=== PATIENT | female | born 1980 | race Caucasian/White ===

== ENCOUNTER 2017-08-19 18:33 | Emergency (ER) | payer OTHER ==
[~2017-08-19] VITALS: Ht 167.6 cm; Wt 54.4 kg
[2017-08-19 19:07] LABS: URINE BILIRUBIN NEGATIVE (Negative); URINE BLOOD NEGATIVE (Negative); URINE CLARITY CLEAR; URINE COLOR YELLOW; URINE GLUCOSE-RANDOM* NEGATIVE (Negative); URINE KETONES NEGATIVE (Negative); URINE LEUKOCYTES NEGATIVE (Negative); URINE NITRITE NEGATIVE (Negative); URINE PROTEIN (DIPSTICK) NEGATIVE (Negative); URINE SPECIFIC GRAVITY <= 1.005 (1.005-1.035); URINE UROBILINOGEN 0.2 E.U./dl (0.2-1.0)
[2017-08-19] MEDS ORDERED: MOBIC7.5 MG PO (20:30)
[2017-08-19 20:37] VITALS: BP 115/76
== END 2017-08-19 20:37 | disposition home or self-care (01) ==
LOC: ER 18:33
PROVIDERS: Nurse Practitioner Family
DX: M54.5 Low back pain (principal); F41.9 Anxiety disorder, unspecified

== ENCOUNTER 2019-01-22 03:02 | Emergency (ER) | payer OTHER ==
[~2019-01-22] VITALS: Ht 167.6 cm; Wt 54.4 kg
[~2019-01-22 03:02] MED LIST: MOBIC7.5 MG PO
[2019-01-22] MEDS ORDERED: FLONASE 0.05%50 MCG NASAL (03:12)
[2019-01-22] MEDS ORDERED: AZELASTINE137 MCG/0. NASAL (03:13)
[2019-01-22] MEDS ORDERED: MIRENA1 EACH INTRAUTERI (03:14)
[2019-01-22 03:43] LABS: ABSOLUTE NEUTROPHILS 1.9 thou/uL (1.4-8.2); BASOPHILS 0.9 % (0.0-2.0); EOSINOPHILS 1.9 % (0.0-3.0); HEMATOCRIT 40.8 % (37.0-47.0); HEMOGLOBIN 13.8 gm/dL (12.0-15.0); LYMPHOCYTES 48.1 % (24.0-44.0); MCH 28.6 pg (26.0-34.0); MCHC 33.8 g/dL (28.0-37.0); MCV 84.6 fL (80.0-100.0); MONOCYTES 7.6 % (1.0-8.0); PLATELET COUNT 256 thou/uL (150-400); POLYS 41.5 % (36.0-66.0); RBC 4.82 mil/uL (4.20-5.00); RDW 12.5 % (10.5-14.5); WBC 4.6 thou/uL (4.0-11.0)
[2019-01-22 04:05] LABS: ANION GAP 15 mmol/L (7-16); BUN 6 mg/dL (7-18); CALCIUM 9.5 mg/dL (8.5-10.1); CHLORIDE 102 mmol/L (98-107); CO2 23 mmol/L (21-32); CREATININE 0.7 mg/dL (0.6-1.0); GLUCOSE 101 mg/dL (74-106); SODIUM 140 mmol/L (136-145)
[2019-01-22 04:06] LABS: POTASSIUM 2.9 mmol/L (3.5-5.1)
[2019-01-22 04:14] LABS: TROPONIN-I <0.06 ng/mL (<0.06)
[2019-01-22 05:32] VITALS: BP 123/74
--- NOTE | 2019-01-22 09:14 | EKG ---
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
== END 2019-01-22 05:33 | disposition home or self-care (01) ==
LOC: ER 03:02
PROVIDERS: Emergency Medicine
DX: E87.6 Hypokalemia (principal); R07.2 Precordial pain; F41.9 Anxiety disorder, unspecified; K21.9 Gastro-esophageal reflux disease without esophagitis

== ENCOUNTER 2019-03-14 05:39 | Emergency (ER) | payer OTHER ==
[~2019-03-14] VITALS: Ht 167.6 cm; Wt 54.4 kg
[~2019-03-14 05:39] MED LIST changes: +AZELASTINE137 MCG/0. NASAL; +FLONASE 0.05%50 MCG NASAL; +MIRENA1 EACH INTRAUTERI
[2019-03-14] MEDS ORDERED: BENADRYL25 MG PO (06:03)
[2019-03-14] MEDS ORDERED: XANAX 0.25 MG0.25 MG PO (06:03)
[2019-03-14 06:21] LABS: URINE BILIRUBIN NEGATIVE (Negative); URINE BLOOD NEGATIVE (Negative); URINE CLARITY CLEAR; URINE COLOR YELLOW; URINE GLUCOSE-RANDOM* NEGATIVE (Negative); URINE KETONES NEGATIVE (Negative); URINE LEUKOCYTES-REFLEX NEGATIVE (Negative); URINE NITRITE-REFLEX NEGATIVE (Negative); URINE PROTEIN (DIPSTICK) NEGATIVE (Negative); URINE SPECIFIC GRAVITY <= 1.005 (1.005-1.035); URINE UROBILINOGEN 0.2 E.U./dl (0.2-1.0)
[2019-03-14 06:30] LABS: AMP/METHAMP Negative (Negative); BARBITURATES Negative (Negative); BENZODIAZEPINES Negative (Negative); COCAINE Negative (Negative); METHADONE Negative (Negative); OPIATES Negative (Negative); PCP Negative (Negative)
[2019-03-14 06:46] LABS: ABSOLUTE NEUTROPHILS 6.6 thou/uL (1.4-8.2); BASOPHILS 0.2 % (0.0-2.0); EOSINOPHILS 0.1 % (0.0-3.0); HEMATOCRIT 38.3 % (37.0-47.0); HEMOGLOBIN 12.6 gm/dL (12.0-15.0); LYMPHOCYTES 10.5 % (24.0-44.0); MCH 28.5 pg (26.0-34.0); MCHC 32.9 g/dL (28.0-37.0); MCV 86.6 fL (80.0-100.0); MONOCYTES 3.7 % (1.0-8.0); PLATELET COUNT 299 thou/uL (150-400); POLYS 85.5 % (36.0-66.0); RBC 4.42 mil/uL (4.20-5.00); RDW 12.4 % (10.5-14.5); WBC 7.7 thou/uL (4.0-11.0)
[2019-03-14 07:02] LABS: ANION GAP 11 mmol/L (7-16); BUN 6 mg/dL (7-18); CALCIUM 9.7 mg/dL (8.5-10.1); CHLORIDE 100 mmol/L (98-107); CO2 25 mmol/L (21-32); CREATININE 0.6 mg/dL (0.6-1.0); GLUCOSE 123 mg/dL (74-106); POTASSIUM 3.3 mmol/L (3.5-5.1); SODIUM 136 mmol/L (136-145)
[2019-03-14 07:13] LABS: ALBUMIN 4.4 g/dL (3.4-5.0); MAGNESIUM 1.6 mg/dL (1.8-2.4); SGOT 17 U/L (15-37); SGPT 13 U/L (30-65); TOTAL BILIRUBIN 0.6 mg/dL (<0.1-1.0); TOTAL PROTEIN 7.7 g/dL (6.4-8.2); TROPONIN-I <0.06 ng/mL (<0.06)
[2019-03-14 07:25] LABS: SALICYLATE < 2.8 mg/dL (2.8-20.0)
[2019-03-14 08:54] VITALS: BP 108/73
--- NOTE | 2019-03-14 09:33 | NUR ---
This medical sales was contacted to come visit with this patient. She was anxious and had some dehydration issues and other medical issues. She presented as a person that is very bright, articulate, and probably gifted intellectually. 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 She was very straight forward sharing that she worries a gread deal and her mind often races at time thinking about things. This medical sales shared it is good that God has made people like her that are bright, articulate and artistic, but sometimes they can tend to wrorry or strive for p[erfection. We discussed how God has miraculously made us and it is good she is aware of everthing going on with her and it is is good she came to the hospital. We discussed the importance of spirituality and finding strength and comfort in God. We concluded in prayer as the docor entered. The Emergency Department doctor noted as he entered the room her heart had slowed considerably. This medical sales left to get her a Hospital Edition Bible and a copy of the devotional, "Our Daily Bread". Upon returning this medical sales gave her the Bible and suggested to read the devotional in the morning and to read a Psalm for each calendar day, such as for today it would be Psalm 24. The patient was thankful for the time and understanding. ratre had slowed considerably in
--- NOTE | 2019-03-15 08:31 | EKG ---
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1980 Requested By: Messi Kang Order Number: [id number] MD: Quang Avila Measurements Intervals [place] Rate: 138 P: 65 [place]: 112 QRS: 78 QRSD: 103 T: 48 QT: 303 QTc: 459 Interpretive Statements Sinus tachycardia RSR' in V1 or V2, right VCD Compared to ECG 01/22/2019 03:17:29 Right ventricular hypertrophy now present Heart rate has increased Electronically Signed On 03-15-2019 8:31:15 CDT by Quang Avila [email or web address] <ELECTRONICALLY SIGNED> By: Quang Avila MD, [facility] 03/15/19 0831 6 6 Quang Avila MD, [facility] /EPI
== END 2019-03-14 08:55 | disposition home or self-care (01) ==
LOC: ER 05:39
PROVIDERS: Emergency Medicine
DX: F41.9 Anxiety disorder, unspecified (principal); R00.0 Tachycardia, unspecified; Z88.6 Allergy status to analgesic agent